=== PATIENT | female | born 1995 | race Caucasian/White ===

== ENCOUNTER 2018-05-12 19:01 | Emergency (ER) | payer SELFPAY ==
--- NOTE | 2018-05-12 20:26 | ER ---
Nurse's Notes [facility] Name: Bianka Ahumada Age: 22 yrs Sex: Female : 1995 Arrival Date: 05/12/2018 Time: 19:04 Bed Waiting Private MD: Diagnosis: ED Course: 05/12 19:04 Patient arrived in ED. rg4 20:00 Patient's name was called from ER lobby. No response. aj1 20:16 Patient's name was called from ER lobby. No response. aj1 20:25 Patient's name was called from ER lobby. No response. Unable to locate patient. Will aj1 disposition as left without being seen by a provider. Administered Medications: No medications were administered Outcome: 20:25 Patient left the ED. aj1 Signatures: Christal Dunn RN RN Aury Nelson rg4
== END 2018-05-12 20:25 | disposition left against medical advice (07) ==
LOC: ER 19:01
DX: Z53.21 Procedure and treatment not carried out due to patient leaving prior to being seen by health care provider (principal)